=== PATIENT | female | born 1960 | race Caucasian/White ===

== ENCOUNTER 2021-05-19 15:58 | Emergency (ER) | payer MEDICAID ==
[~2021-05-19] VITALS: Ht 175.3 cm; Wt 81.6 kg
--- NOTE | 2021-05-19 16:00 | NUR ---
Placed in room 6 . Placed on school bus monitor, blood pressure machine and pulse oximeter. To gown for exam. Side rails up. Report given to SARAH Murrell.
[2021-05-19 16:08] VITALS: BP_SYST 133
--- NOTE | 2021-05-19 16:19 | NUR ---
Patient came into the ER with complaint of difficulty swallowing and pain when eating. Per patient she has had multiple episodes of vomiting when eating and especially when drinking fluids. The patient admitted that she has recently seen Kate Shanks at [place] regarding her issues and was given Propanazole for GERD. Patient has lost 7 pounds of the last month but nutrion has been poor as of late.
--- NOTE | 2021-05-19 16:43 | NUR ---
Patient transported to radiology via WHEELCHAIR, accompanied by TECH.
--- NOTE | 2021-05-19 16:51 | NUR ---
ER Dr. GARCIA at bedside examining patient.
[2021-05-19] MEDS ORDERED: NACL 0.9% 1,000 ML IV ONE (17:00)
[2021-05-19] MEDS ORDERED: FAMOTIDINE PF 20 MG/2 ML VIAL IVP ONE (17:00)
[2021-05-19] MEDS ORDERED: SYN50 PO (17:04)
[2021-05-19 17:06] LABS: EOSINOPHILS # (AUTO) 0.1 K/uL (0.0-0.4); HEMOGLOBIN 12.7 g/dL (12.0-16.0); MEAN CORPUSCULAR HEMOGLOBIN 29 pg (27-31); RED CELL DISTRIBUTION WIDTH 13.5 % (9.0-15.0)
[2021-05-19] MEDS ORDERED: PIOG30TA70 PO (17:06)
[2021-05-19] MEDS ORDERED: OMEP40CA13 PO (17:07)
[2021-05-19] MEDS ORDERED: GLUXR500 PO (17:07)
[2021-05-19 17:10] LABS: BASOPHILS % (AUTO) 0.5 % (0.0-2.0); EOSINOPHILS % (AUTO) 1.1 % (0.0-4.0); HEMATOCRIT 39.5 % (36-48); LYMPHOCYTES # (AUTO) 1.2 K/uL (1.0-5.5); LYMPHOCYTES % (AUTO) 17.4 % (20.5-51.5); MEAN CORPUSCULAR HGB CONC 32 % (32-36); MEAN CORPUSCULAR VOLUME 91 fL (79.0-98.0); MONOCYTES # (AUTO) 0.5 K/uL (0.0-1.0); MONOCYTES % (AUTO) 6.7 % (1.7-9.3); NEUTROPHILS # (AUTO) 5.1 K/uL (1.8-7.7); NEUTROPHILS % (AUTO) 74.3 % (40.0-70.0); PLATELET COUNT (AUTO) 253 K/uL (130-430); RED BLOOD CELL COUNT(AUTO) 4.33 MIL/uL (4.2-6.2); WHITE BLOOD COUNT (AUTO) 6.9 K/uL (4.8-10.8)
[2021-05-19 17:21] LABS: CALCIUM 9.1 mg/dL (8.4-11.0); CREATININE 0.88 mg/dL (0.55-1.30); POTASSIUM 3.3 mmol/L (3.5-5.1)
[2021-05-19 17:26] LABS: TOTAL BILIRUBIN 0.5 mg/dL (0.0-1.0)
--- NOTE | 2021-05-19 17:30 | NUR ---
# 20 gauge angiocath placed to R WRIST. Use of asceptic technique. Opsite placed over site. Blood return noted. Blood for lab drawn from site. Flushed with 10 cc of normal saline. No evidence of infiltration noted. Patient tolerated well.
--- NOTE | 2021-05-19 17:40 | NUR ---
MED REC AND BELONGINGS LIST COMPLETE
[2021-05-19 17:51] LABS: CLARITY/URINE CLEAR (CLEAR); COLOR,URINE YELLOW (YELLOW); PROTEIN URINE NEGATIVE (NEGATIVE)
[2021-05-19 17:52] LABS: BILIRUBIN,URINE NEGATIVE (NEGATIVE); BLOOD, URINE NEGATIVE (NEGATIVE); GLUCOSE,URINE NEGATIVE (NEGATIVE); KETONES,URINE MODERATE (NEGATIVE); LEUKOCYTE ESTERASE ,URINE TRACE (NEGATIVE)
[2021-05-19 17:53] LABS: NITRITE, URINE NEGATIVE (NEGATIVE)
[2021-05-19 18:07] LABS: BACTERIA,URINE MODERATE /HPF (None Seen); CALCIUM OXALATE CRYSTALS,UR None Seen /HPF (None Seen); CALCIUM PHOSPHATE CRYSTALS,UR None Seen /HPF (None Seen); RBC,URINE 0-3 /HPF (0-3); TRICHOMONAS,URINE None Seen /HPF (None Seen); TRIPLE PHOSPHATE CRYSTAL,UR None Seen /HPF (None Seen); URIC ACID CRYSTALS,URINE None Seen /HPF (None Seen); YEAST,URINE None Seen /HPF (None Seen)
[2021-05-19 18:08] LABS: COARSE GRANULAR CASTS,URINE None Seen /LPF (None Seen); FINE GRANULAR CASTS,URINE None Seen /LPF (None Seen); HYALINE CASTS, URINE None Seen /LPF (None Seen); MUCUS,URINE 1+ /LPF (None Seen); OTHER CASTS, URINE None Seen /LPF (None Seen); OTHER CRYSTALS,URINE None Seen /HPF (None Seen); URINE AMORPHOUS PHOSPHATES None Seen /HPF (None Seen); URINE AMORPHOUS URATE None Seen /HPF (None Seen); WAXY CASTS,URINE None Seen /LPF (None Seen)
[2021-05-19 18:22] VITALS: BP_SYST 129
--- NOTE | 2021-05-19 18:23 | NUR ---
Stacy wallace in ED - 05/19/21 at 1823 by SDEDGS DANIELLE Neves at bedside examining patient.
--- NOTE | 2021-05-19 19:15 | NUR ---
Note [facility] in EDM - 05/19/21 at 1916 by NERY Patient does not wish to proceed with medical care recommended by . Patient given information related to possible complications, up to and including , which could occur as a result of leaving hospital at this time. Patient verbalizes understanding of risks involved leaving against medical advice. Patient has signed AMA form.
--- NOTE | 2021-05-19 19:39 | NUR ---
Patient does not wish to proceed with medical care recommended by DR GARCIA. Patient given information related to possible complications, up to and including , which could occur as a result of leaving hospital at this time. Patient verbalizes understanding of risks involved leaving against medical advice. Patient has signed AMA form.
== END 2021-05-19 19:39 | disposition left against medical advice (07) ==
LOC: SED 15:58
DX: K22.2 Esophageal obstruction (principal); E86.0 Dehydration; E11.9 Type 2 diabetes mellitus without complications; Z79.899 Other long term (current) drug therapy; Z20.822 Contact with and (suspected) exposure to COVID-19
CPT/HCPCS: 36415; 74220; 80053; 81000; 83690; 85025; 87086; 87426; 96361; 96374; 99284; J3490; J7030